=== PATIENT | female | born 1965 | race Caucasian/White ===

== ENCOUNTER → 2017-02-06 09:45 | Outpatient (CLI) | payer MEDICAID | END | disposition home or self-care (01) | LOC: D.RAD 09:45 | DX: K59.01 Slow transit constipation (principal) ==

== ENCOUNTER → 2019-01-18 11:55 | Outpatient (CLI) | payer OTHER, MEDICAID ==
--- NOTE | 2019-01-27 10:38 | ST ---
PATIENT:DARA WADE MEDICAL RECORD: [id number] SEX: F LOCATION:[facility] ORDER #: ADMISSION DATE: 01/18/19 AGE OF PATIENT: 53 REFERRING PHYSICIAN: INTERPRETING PHYSICIAN: SHEY NOVA MD DATE OF SERVICE: 01/18/2019 PROCEDURE: Nuclear stress test. INDICATION: Chest pain compatible with angina, hypertension and hyperlipidemia. She was exercised on standard Lexiscan protocol with 31 mCi of sestamibi injected at peak stress, 11 mCi used previously for rest images. FINDINGS: Gated SPECT reveals preserved ejection fraction at 71% with good wall motion and thickening and brightening throughout all segments. SPECT imaging Cardiolite was used as myocardial fusion agent. There is homogeneous uptake throughout all segments at rest and stress with no evidence of inducible ischemia or previous infarction. OVERALL IMPRESSION: 1. This is a normal nuclear stress test with no evidence of inducible ischemia or previous infarction. 2. Gated SPECT reveals a preserved ejection fraction at 71%. In this patient with ongoing symptomatology, the current scan does not suggest the presence of hemodynamically significant coronary artery disease. Evaluate noncardiac etiology of chest pain. 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
== END | disposition home or self-care (01) ==
LOC: D.HCCARDIO 11:55
PROVIDERS: ATTEND Internal Medicine Interventional Cardiology
DX: I20.9 Angina pectoris, unspecified (principal)

== ENCOUNTER 2019-02-03 11:06 | Outpatient (CLI) | payer MEDICARE, MEDICAID ==
[~2019-02-03] VITALS: Ht 162.6 cm; Wt 78.2 kg
--- NOTE | ~2019-02-03 | HEMODYNAMI ---
PATIENT:DARA WADE MEDICAL RECORD: [id number] : 61 LOCATION:[facility] ADMISSION DATE: 02/03/19 Generatedon:02/03/201914:22 Patient name: DARA WADE Patient #: [id number] SSN: : 1965 Date of study: 02/03/2019 Page: Of Hemodynamic Procedure Report Patient Data Patient Demographics Procedure consent was obtained First Name: DARA Gender: Female Last Name: SHERI : 1965 Middle Initial: MAKI Age: 53 year(s) Patient #: [id number] Race: Unknown Additional ID: [id number] Contact details Address: [address] [place] [address] ROAD State: [place] City: [place] Zip code: [address] Past Medical History Allergies Allergen Reaction Date Comments Reported Other allergy 02/03/2019 CODEINE, MINOCYCLINE, MORPHINE, PCN Admission Admission Data Admission Date: 02/03/2019 Admission Time: 11:06 Weight (lbs.): 171.96 Weight (kg.): 78 Procedure Procedure Types Cath Procedure Diagnostic Procedure [facility] w/Coronaries FFR/IVUS FFR Initial Sedation Charges Moderate Sedation up to 15 minutes PCI Procedure Coronary Stent Coronary Stent Initial Procedure Description Procedure Date Procedure Date: 02/03/2019 Procedure Start Time: 13:51 Procedure End Time: 14:21 Procedure Staff Name Function Jacob Cohen MD Performing Physician Ana Campbell RT Monitor Amrita Mcclure RN Nurse Tahir Spencer RT Scrub Felicitas Hernandez RT Professor Of Family Medicine Procedure Data Cath Procedure Fluoroscopy Diagnostic fluoroscopy Total fluoroscopy Time: 3.5 time: 3.5 min min Diagnostic fluoroscopy Total fluoroscopy dose: 338 dose: 338 mGy mGy Contrast Material Contrast Material Type Amount (ml) Isovue 300 124 Entry Location Entry Primary Successful Side Size Upsize Upsize Entry Closure Succes sful Closure Location (Fr) 1 (Fr) 2 (Fr) Remarks Device Remarks Femoral Right 5 Fr 6 Fr Exoseal artery Short Estimated blood loss: 10 ml Diagnostic catheters Device Type Used For End Catheter Placement MULTIPACK JL 4.0 5Fr Procedure catheter MULTIPACK 3DRC 5Fr Procedure catheter MULTIPACK Pigtail 5 Fr Procedure catheter Procedure Complications No complications Procedure Medications Medication Administration Route Dosage Oxygen etCO2 Nasal cannula 2 l/min Lidocaine 2% added to field 20 Heparin Flush Bag added to field 2 bags (1000units/500ml NS) 0.9% NaCl I.V. 100 ml/hr Versed I.V. 2 mg Fentanyl I.V. 100 mcg Heparin Bolus I.V. 4000 units Integrilin (Bolus I.V. 6.8 ml 2mg/ml) Versed I.V. 2 mg Fentanyl I.V. 50 mcg Plavix P.O. 600 mg Hemodynamics Rest Heart Rate: 72 (bpm) Pressure Samples Time Site Value (mmHg) Purpose Heart Use Rate(bpm) 13:56 LV 156/-4,37 EDP 80 13:56 AO 171/62(121) Pullback 79 13:56 LV 154/3,20 Pullback 79 Gradients Valve Time Site 1 Site 2 Mean SEP/DFP Peak To Heart Use (mmHg) (sec/min) Peak Rate (mmHg) (bpm) Aortic 13:56 LV AO 0 15 0 79 154/3,20 171/62(121) Calculations Valve P-P Mean Valve Index Valve Source Name Gradient Area Flow (cm2) Aortic 0 0 0 0 Snapshots Pre Cath Intra NCS Post Cath Vital Signs Time Heart Resp SPO2 etCO2 NIBP (mmHg) Rhythm Pain Sedation Rate (ipm) (%) (mmHg) Status Level (bpm) 13:40:52 65 19 100 33.5 181/103(147) NSR 0 (11) 10(A) , No pain 13:45:22 76 16 98 34.2 157/97(136) NSR 0 (11) 10(A) , No pain 13:49:49 73 21 98 36.4 149/87(132) NSR 0 (11) 10(A) , No pain 13:54:09 79 21 98 30.5 155/93(130) NSR 0 (11) 10(A) , No pain 13:58:33 83 20 99 36.5 146/90(123) NSR 0 (11) 9(A) , No pain 14:02:55 77 41 99 35.7 151/93(129) NSR 0 (11) 9(A) , No pain 14:07:17 73 12 97 40.2 143/90(118) NSR 0 (11) 9(A) , No pain 14:11:37 75 13 98 9.6 146/87(127) NSR 0 (11) 9(A) , No pain 14:15:58 79 13 99 26 155/102(140) NSR 0 (11) 10(A) , No pain 14:20:22 71 25 99 37.2 163/96(132) NSR 0 (11) 9(A) , No pain Medications Time Medication Route Dose Verified Delivered Reason Notes Effectiveness by by 13:41:28 Oxygen etCO2 2 Jacob Crowe used for Nasal l/min St Moise Mcclure RN procedure cannula 13:44:04 Lidocaine 2% added 20ml Jacob Yaoory for local to vial [facility] anesthetic field MD MULLER 13:44:10 Heparin Flush added 2 Jacob Jacob used for Bag to bags [facility] procedure (1000units/500ml field MD MULLER NS) 13:44:23 0.9% NaCl I.V. 100 Jacob Crowe Per physician ml/hr St Moise Mcclure RN, MD 13:51:40 Versed I.V. 2 mg Jacob Crowe for sedation St Moise Mcclure RN, MD 13:51:48 Fentanyl I.V. 100 Jacob Crowe for sedation mcg St Moise Mcclure RN, MD 13:56:40 Versed I.V. 2 mg Jacob Crowe for sedation St Moise Mcclure RN, MD 13:56:57 Fentanyl I.V. 50 Jacob Crowe for sedation mcg St Moise Mcclure RN, MD 13:58:26 Heparin Bolus I.V. 4000 Jacob Crowe for verif ied units St Moise Mcclure RN anticoagulation with dr MD wilson 14:00:32 Integrilin I.V. 6.8 Jacob Crowe for waste d (Bolus 2mg/ml) ml St Moise Mcclure RN antiplatelet 3.2 ml therapy of vial 14:19:30 Plavix P.O. 600 [address]we for mg St Moise Mcclure RN antiplatelet therapy Procedure Log Time Note 13:23:57 Time tracking: Regular hours (M-F 7:00 - 5:00) 13:24:02 Plan of Care:Hemodynamics will remain stable., Cardiac rhythm will remain stable., Comfort level will be maintained., Respiratory function will remain adequate., Patient/ family verbilizes understanding of procedure., Procedure tolerated without complication., Recovers from procedure without complications.. 13:24:27 Felicitas Mary RT(R) sent for patient. Start room use. 13:25:27 H&P Date Dictated: 01/29/2019 Within 30 days and on chart., H&P Addendum completed by physician on day of procedure. (MUST COMPLETE FOR ALL OUTPATIENTS). 13:25:50 Patient allergic to Other allergyCODEINE, MINOCYCLINE, MORPHINE, PCN 13:26:45 Patient Weight : 171.96 lbs 13:28:37 Signed procedure consent form obtained from patient. 13:34:49 Patient received from Pre/Post Procedure Room to CCL 1 Alert and oriented. Tansferred to table in Supine position. 13:34:51 Warm blankets applied, and marcio hugger turned on for patient comfort. 13:34:52 Correct patient and procedure confirmed by team. 13:34:53 ECG and BP/O2 sat monitors applied to patient. 13:39:29 Vital chart was started 13:39:32 Rhythm: sinus rhythm 13:39:34 Full Disclosure recording started 13:39:37 Pre-procedure instructions explained to patient. 13:39:37 Pre-op teaching completed and patient verbalized understanding. 13:39:42 Family unavailable. 13:39:44 Patient NPO since Midnight. 13:39:46 Is the patient allergic to Iodine/contrast media? No. 13:39:47 Is patient on blood thinner?No 13:39:49 Patient diabetic? No. 13:39:52 Previous problem with sedation/anesthesia? No ? 13:39:53 Snore? No 13:39:56 Sleep apnea? No 13:39:57 Deviated septum? No 13:39:58 Opens mouth fully? Yes 13:39:58 Sticks out tongue? Yes 13:40:00 Airway obstruction? No ? 13:40:02 Dentures? No ? 13:41:28 Oxygen 2 l/min etCO2 Nasal cannula was administered by Amrita Mcclure RN; used for procedure; 13:43:15 Pre procedure: right dorsailis pedis pulse 2+ Normal; easily identifiable; not easily obliterated 13:43:23 Pre procedure: right radial pulse 1+ Palpable, but thready & weak; easily obliterated 13:43:27 Patient pain scale 0/10 ?. 13:43:33 IV patent on arrival in left forearm with 0.9% NaCl at O. 13:43:37 Lab results completed and on chart. 13:43:40 Right groin area was prepped with chlora-prep and draped in sterile fashion 13:43:42 Alarms reviewed by R. N. 13:43:43 Sharps counted by scrub and verified by R.N. 13:43:49 Use device set Femoral Dx 13:43:50 ACIST Syringe (84889) opened to sterile field. 13:43:50 Bag Decanter (2002S) opened to sterile field. 13:43:51 Medline Cath Pack ([id number]) opened to sterile field. 13:43:51 ACIST Hand Control (21405) opened to sterile field. 13:43:52 ACIST Manifold (08128) opened to sterile field. 13:43:52 DIAGNOSTIC Multipack 5Fr catheter set (ZB3182) opened to sterile field. 13:43:53 Tegaderm 4 x 4 (1626W) opened to sterile field. 13:43:54 SHEATH 5FR Culver ([id number]) opened to sterile field. 13:44:04 Lidocaine 2% 20ml vial added to field was administered by Jacob Cohen MD; for local anesthetic; 13:44:09 Baseline sample Acquired. 13:44:10 Heparin Flush Bag (1000units/500ml NS) 2 bags added to field was administered by Jacob Cohen MD; used for procedure; 13:44:23 0.9% NaCl 100 ml/hr I.V. was administered by Amrita Mcclure RN; Per physician; 13:45:45 DIAGNOSTIC WIRE .035 260cm J wire (738698) opened to sterile field. 13:50:45 --------ALL STOP TIME OUT------ 13:50:45 Final Timeout: patient, procedure, and site verified with staff and physician. All members of the team are in agreement. 13:50:46 Right groin site verified by team. 13:50:48 Maximum allowable Isovue 300 dose 300ml. Physician notified. (300ml for normal creatinines. For patients with creatinine of 1.7 or higher multiply weight(kg) x 5 divided by creatinine.) 13:50:52 Fire Safety Assessment: A--An alcohol-based skin anteseptic being used preoperatively., C--Open oxygen or nitrous oxide is being used., D--An ESU, laser, or fiber-optic light is being used. 13:50:54 Physical assessment completed. ASA score P 2 - A patient with mild systemic disease as per Jacob Cohen MD. 13:50:58 Sedation plan: IV Moderate Sedation Medication:Versed, Fentanyl 13:51:02 Procedure started. 13:51:05 Local anesthetic to right femoral artery with Lidocaine 2% by Jacob Cohen MD.INITIAL ACCESS ONLY 13:51:36 A 5 Fr sheath was inserted into the Right Femoral artery 13:51:40 Versed 2 mg I.V. was administered by Amrita Mcclure RN; for sedation; 13:51:48 Fentanyl 100 mcg I.V. was administered by Amrita Mcclure RN; for sedation; 13:51:56 A MULTIPACK JL 4.0 5Fr catheter was advanced over the wire and used for Procedure. 13:53:24 LCA angiography performed. 13:53:38 Catheter removed. 13:53:54 A MULTIPACK 3DRC 5Fr catheter was advanced over the wire and used for Procedure. 13:54:38 RCA angiography performed. 13:54:39 Catheter removed. 13:55:20 A MULTIPACK Pigtail 5 Fr catheter was advanced over the wire and used for Procedure. 13:56:00 LV gram done using PATTERSON 13:56:02 Injector settings: Ml/sec: 10, Volume: 20, 13:56:16 LV hemodynamics recorded. 13:56:40 Versed 2 mg I.V. was administered by Amrita cMclure RN; for sedation; 13:56:46 EF : 55 % 13:56:48 Catheter removed. 13:56:57 Fentanyl 50 mcg I.V. was administered by Amrita Mcclure RN; for sedation; 13:56:57 SHEATH 6FR Culver (GNL997) opened to sterile field. 13:56:57 [place] Verrata Plus pressure wire (07039F) opened to sterile field. 13:56:58 GUIDE 6FR JL 4.0 catheter ([id number]) opened to sterile field. 13:57:17 Sheath upsized to a 6 Fr Short. 13:58:19 6 Fr JL 4 guide catheter was inserted over the wire 13:58:26 Heparin Bolus 4000 units I.V. was administered by Amrita Mcclure RN; for anticoagulation; verified with dr wilson 13:58:43 INFLATOR Merit Krysta (GA6817) opened to sterile field. 14:00:32 Integrilin (Bolus 2mg/ml) 6.8 ml I.V. was administered by Amrita Mcclure RN; for antiplatelet therapy; wasted 3.2 ml of vial 14:02:08 PRESSURE WIRE REMOVED.... DAMAGED 14:02:18 [place] Verrata Plus pressure wire (35749X) opened to sterile field. 14:03:05 FFR/IFR wire advanced. 14:12:25 Place stent Inflation Number: 1 A INTEGRITY RX 3.0 x 15 stent ([id number]) was prepped and advanced across the Mid LAD. The stent was deployed at 14 ANNIE for 0:25 (min:sec). 14:12:59 Stent catheter was removed intact over wire. 14:14:10 Wire removed. 14:14:11 Guide catheter removed. 14:14:16 EXOSEAL 6Fr (EX600) opened to sterile field. 14:14:45 Sheath removed intact; hemostasis achieved with Exoseal to the Right Femoral artery. 14:14:47 Procedure ended.(Physican Out) 14:16:14 Fluoroscopy time 03.50 minutes. 14:16:19 Fluoroscopy dose: 338 mGy 14:16:19 Flurop Dose total: 338 14:16:22 Contrast amount:Isovue 300 124ml. 14:16:24 Sharps counted by scrub and verified by R.N. 14:16:27 Post-op/insertion site Right Femoral artery dressed using a 4 x 4 and Tegaderm. 14:16:38 Post-procedure physical assessment completed. ASA score P 2 - A patient with mild systemic disease as per Jacob Cohen MD. 14:16:41 Post procedure rhythm: sinus rhythm 14:16:42 Estimated blood loss: 10 ml 14:16:43 Post procedure instruction explained to patient.Patient verbalizes understanding. 14:16:44 Patient needs reinforcement of post procedure teaching. 14:17:12 Procedure type changed to Cath procedure, Diagnostic procedure, LHC, LHC w/Coronaries, FFR/IVUS, FFR Initial, Sedation Charges, Moderate Sedation up to 15 minutes, PCI procedure, Coronary Stent, Coronary Stent Initial 14:19:06 Procedure and supply charges have been captured, reviewed, submitted and are correct. 14:19:08 Procedure Complication : No complications 14:19:30 Plavix 600 mg P.O. was administered by Amrita Mcclure RN; for antiplatelet therapy; 14:21:29 Vital chart was stopped 14:21:30 See physician's report for complete and final results. 14:21:32 Report given to Pre/Post Procedure Room. 14:21:35 Patient transfered to Pre/Post Procedure Room with Bed. 14:21:37 Procedure ended. 14:21:37 Full Disclosure recording stopped 14:21:40 End room use (Document Last) Intervention Summary Intervention Notes Time ActionType Lesion and Equipment Action# Pressure Duration Attributes Used 14:12:25 Place stent Mid LAD INTEGRITY RX 1 14 00:25 3.0 x 15 stent ([id number]) Device Usage Item Name Manufacture Quantity Catalog Hospital Part Current Mini smallpox hospital Lot# / Number Charge Number Stock Stock Serial# Code ACIST Acist 1 64827 390890 914765 034742 20 Syringe Medical (27186) Systems Inc Bag Decanter Microtek 1 2001S 000258 82552 423899 5 (2001S) Medical Inc. Medline Cath Medline 1 [id number] 290742 02671 940090 5 Pack ([id number]) ACIST Hand Acist 1 33403 838081 383991 594632 5 Control Medical (09222) Systems Inc ACIST Acist 1 00647 768114 849650 883162 5 Manifold Medical (18691) Systems Inc DIAGNOSTIC Cardinal 1 [id number] 091651 21329 470351 30 Multipack Health 5Fr catheter set (QR4414) Tegaderm 4 x 3M 1 1626W 457861 391931 162841 5 4 (1626W) SHEATH 5FR Terumo 1 PHH759 396417 285695 180901 5 Culver (ZAV452) DIAGNOSTIC St Vince 1 593185 894775 194930 809712 30 WIRE .035 260cm J wire (836872) MULTIPACK JL Cardinal 1 313627 5 4.0 5Fr Health catheter MULTIPACK Cardinal 1 137571 5 3DRC 5Fr Health catheter MULTIPACK Cardinal 1 248491 5 Pigtail 5 Fr Health catheter SHEATH 6FR Terumo 1 RVK859 471184 407429 295086 40 Culver (SCK369) Washington Washington 2 75046G 817221 240201663 377489 5 Verrata Plus pressure wire (15846L) GUIDE 6FR JL Medtronic 1 [id number] 753627 58130 376508 1 4.0 catheter (UU8QX04) INFLATOR Merit 1 EH3943 732424 876779 520052 15 [facility] Medical BasixCompak (TY6486) INTEGRITY RX Medtronic 1 [id number] 087972 285596 931083 5 [id number] 3.0 x 15 stent ([id number]) EXOSEAL 6Fr Cardinal 1 EX600 747578 284607 203993 10 (EX600) Health Signature Audit [place] Stage Time Signature Unsigned Intra-Procedure 02/03/2019 Ana Campbell 2:22:01 PM RT(R) Signatures Monitor : Ana Campbell Signature : RT Date : Time : [id number] [place] [address]
--- NOTE | ~2019-02-03 | OP ---
PATIENT NAME: DARA WADE MEDICAL RECORD: [id number] :61 LOCATION:[facility] ADMISSION DATE: SURGEON: DARI DREW MD DATE OF OPERATION: 02/03/2019 PROCEDURE: Cath, FFR, stenting to LAD, right femoral artery approach. CATHETERS: A 5-Albanian sheath, 5/4 left and right Marielos, 5/4 pig. The procedure was well tolerated. We proceeded to do FFR and subsequent stenting. FINDINGS: Left ventriculography in 30-degree PATTERSON view; normal wall motion and normal systolic function. CORONARY ANATOMY: LEFT MAIN: Left main is free of disease. LAD: Has 80% stenosis in its proximal portion. This confirmed to be flow restrictive fractional flow wire with 0.78. CIRCUMFLEX: Small vessel, free of disease. RIGHT CORONARY ARTERY: Has again an 80% stenosis in its midportion. ASSESSMENT: Confirmed significant lesion via fractional flow reserve. PLAN: Interventional LAD, right at a later date. Following FFR, a 3.0 Integrity nondrug eluting stent was placed across the 80% stenosed LAD and inflated up to 14 atmospheres for 45 seconds. Final angiography shows excellent resolution, no significant residual. GURPREET flow was 3 throughout the procedure. Sheath was closed with ExoSeal device. Plavix was loaded in the lab. TRANSINT:[id number] Voice Confirmation ID: [id number] DOCUMENT ID: [id number] DARI DREW MD CC: [id number] DICTATION DATE: 02/03/19 1420 DIRECTOR OF GLOBAL TALENT: 02/03/19 1552 [facility] [address] [place] [address]
[2019-02-03] MEDS ORDERED: LISINOPRIL20 MG PO (11:11)
[2019-02-03] MEDS ORDERED: ATIVAN1 MG PO (11:12)
[2019-02-03] MEDS ORDERED: TENORMIN25 MG PO (11:12)
[2019-02-03] MEDS ORDERED: BUPROPION HCL200 M1 PO (11:12)
[2019-02-03] MEDS ORDERED: CRESTOR20 MG PO (11:12)
[2019-02-03 11:23] VITALS: BP 139/80; Ht 162.6 cm; Wt 78.2 kg
[2019-02-03 11:49] LABS: BASOPHILS 0.6 % (0-2); EOSINOPHILS 1.5 % (0-7); HEMATOCRIT 36.5 % (36.0-48.0); HEMOGLOBIN 12.2 g/dL (12-16); IMMATURE GRANULOCYTES 0.4 % (0-5); MCH 28.2 pg (26.0-34.0); MCHC 33.4 g/dL (31.0-37.0); MCV 84.5 fL (80.0-100.0); MEAN PLATELET VOLUME 9.2 fL (7.4-10.4); MONOCYTES 10.4 % (2-11); NEUTROPHILS 59.1 % (40-80); PLATELET COUNT 277 10x3/uL (130-400); RBC 4.32 10x6/uL (4.00-5.40); RDW 13.3 % (11.5-14.5); WBC 5.3 10x3/uL (4.8-10.8)
[2019-02-03 11:55] LABS: ANION GAP 13.9 mmol/L (8-16); CALCIUM 8.8 mg/dL (8.5-10.1); CREATININE - SERUM 1.1 mg/dL (0.6-1.3); POTASSIUM - SERUM 3.9 mmol/L (3.5-5.1)
[2019-02-03] MEDS ORDERED: PLAVIX75 MG PO (14:27)
--- NOTE | 2019-02-03 14:33 | NUR ---
PT ARRIVED BY STRETCHER. PLACED ON MONITORS. ASSESSMENT COMPLETED. CALL LIGHT WITHIN REACH. NO FAMILY AT BEDSIDE AT THIS TIME.
--- NOTE | 2019-02-03 14:45 | NUR ---
RIGHT GROIN DRESSING C/D/I. NO S/S OF HEMATOMA NOTED. PT RESTING COMFORTABLY AT THIS TIME. VSS.
--- NOTE | 2019-02-03 15:15 | NUR ---
RIGHT GROIN DRESSING C/D/I. NO S/S OF HEMATOMA NOTED. RIGHT PEDAL PULSE PRESENT. VSS. PT DENIES ANY NAUSEA OR PAIN AT THIS TIME. WILL CONTINUE TO MONITOR.
--- NOTE | 2019-02-03 15:46 | NUR ---
PT RESTING COMFORTABLY. RIGHT GROIN DRESSING C/D/I. NO S/S OF HEMATOMA NOTED. VSS.
--- NOTE | 2019-02-03 16:19 | NUR ---
PT ON BEDPAN. VOIDED APPROX 250CC OF CLEAR YELLOW URINE WITHOUT DIFFICULTY. CLARITA-CARE GIVEN. RIGHT GROIN DRESSING C/D/I. NO S/S OF HEMATOMA NOTED. CALL LIGHT WITHIN REACH. PT RESTING COMFORTABLY.
--- NOTE | 2019-02-03 16:47 | NUR ---
PT RESTING COMFORTABLY. VSS. CALL LIGHT WITHIN REACH. RIGHT GROIN DRESSING C/D/I. NO S/S OF HEMATOMA NOTED.
--- NOTE | 2019-02-03 17:15 | NUR ---
PT'S HEAD OF BED INC TO 30 DEGREES. TOLERATED WELL. PT DOES NOT WANT TO EAT AT THIS TIME. GIVEN WATER TO DRINK.
--- NOTE | 2019-02-03 17:31 | NUR ---
CHECKED ON PT. SHE ASKED FOR ORANGE JUICE. WENT TO GET JUICE AND CAME BACK. SHE C/O BEING DIZZY. HR TRENDING DOWN AND BRADYCARDIC AT 52. BP RECHECKED AND WAS 72/47. PT PLACED IN [place]. C/O FEELING HOT. IV FLUID STILL INFUSING AT THIS TIME. RIGHT GROIN CHECKED AND SOFT TO TOUCH. NO S/S OF HEMATOMA OR BLEEDING. PT DENIES PAIN AT THIS TIME.
--- NOTE | 2019-02-03 17:33 | NUR ---
STILL AT BEDSIDE WITH PT. SHE REPORTS STILL FEELING DIZZY BUT FEELING BETTER. PT'S COLOR IS PALE. BP 81/52 AND HR CLIMBING BACK UP. CURRENTLY SB AT RATE OF 56.
--- NOTE | 2019-02-03 17:34 | NUR ---
BP 98/62 HR 61 PT CONTINUING TO FEEL BETTER. STILL IN [place]. CLOSELY MONITORING
--- NOTE | 2019-02-03 17:37 | NUR ---
BP 117/61 HR 71 PT REPORTS FEELING "MUCH BETTER". PLACED BACK IN SUPINE POSITION. WILL CONTINUE TO MONITOR. CALL LIGHT WITHIN REACH.
--- NOTE | 2019-02-03 18:00 | NUR ---
PT'S BP 135/84. HR 65. PT'S HEAD OF BED INC TO 15 DEGREES. RIGHT GROIN DRESSING C/D/I. NO S/S OF HEMATOMA NOTED. WILL CONTINUE TO MONITOR.
--- NOTE | 2019-02-03 18:13 | NUR ---
PT STATES SHE FEELS MUCH BETTER. BP 140/80. HR 76. PT GIVEN SANDWICH TRAY. FAMILY AT BEDSIDE. UPDATED ON PT'S STATUS. HOB INC TO 30 DEGREES. SHE TOLERATED WELL. RIGHT GROIN SOFT TO TOUCH. NO S/S OF HEMATOMA NOTED.
--- NOTE | 2019-02-03 18:26 | NUR ---
PT SAT UP TO SIDE OF BED. BP 159/100 HR 80. PT STOOD UP, BP 142/99 AND HR 80. PT REPORTS SHE FEELS FINE. AMBULATED TO RESTROOM. VOIDED WITHOUT DIFFICULTY. STEADY GAIT NOTED. PT DENIES DIZZINESS/NAUSEA.
--- NOTE | 2019-02-03 18:30 | NUR ---
LEFT ARM PIV D/C'D WITH CATH TIP INTACT. PT TOLERATED WELL. RIGHT GROIN DRESSING C/D/I. NO S/S OF HEMATOMA NOTED. DISCUSSED DISCHARGE INSTRUCTIONS WITH PT AND PT'S FAMILY. THEY VOICED UNDERSTANDING.
--- NOTE | 2019-02-03 18:45 | NUR ---
PT TAKEN OUT TO VEHICLE BY WHEELCHAIR. NO S/S OF DISTRESS NOTED. ALL BELONGINGS AND PAPERWORK IN HAND.
== END 2019-02-03 18:45 | disposition home or self-care (01) ==
LOC: D.CATH 11:06
PROVIDERS: ATTEND Internal Medicine Interventional Cardiology
DX: I25.119 Atherosclerotic heart disease of native coronary artery with unspecified angina pectoris (principal); Z01.812 Encounter for preprocedural laboratory examination

== ENCOUNTER 2019-02-18 11:03 | Outpatient (CLI) | payer MEDICARE, MEDICAID ==
[~2019-02-18] VITALS: Ht 162.6 cm; Wt 75.0 kg
--- NOTE | ~2019-02-18 | HEMODYNAMI ---
PATIENT:DARA WADE MEDICAL RECORD: [id number] : 61 LOCATION:[facility] ADMISSION DATE: 02/18/19 Generatedon:02/18/201913:36 Patient name: DARA WADE Patient #: [id number] SSN: : 1965 Date of study: 02/18/2019 Page: Of Hemodynamic Procedure Report Patient Data Patient Demographics Procedure consent was obtained First Name: DARA Gender: Female Last Name: SHERI : 1965 Middle Initial: MAKI Age: 53 year(s) Patient #: [id number] Race: Additional ID: [id number] Contact details Address: [address] [place] [address] State: [place] City: [place] Zip code: [address] Past Medical History Allergies Allergen Reaction Date Comments Reported Other allergy 02/03/2019 CODEINE, MINOCYCLINE, MORPHINE, PCN Admission Admission Data Admission Date: 02/18/2019 Admission Time: 11:03 Lab Results Lab Result Date: 02/18/2019 Lab Result Time: 0:00 Biochemistry Name Units Result Min Max BUN mg/dl 29 --(----)-* 7 18 Creatinine mg/dl 1 --(--*-)-- 0.6 1.3 Procedure Procedure Types Cath Procedure PCI Procedure Coronary Stent Coronary Stent Initial Procedure Description Procedure Date Procedure Date: 02/18/2019 Procedure Start Time: 13:20 Procedure End Time: 13:34 Procedure Staff Name Function Jacob Cohen MD Performing Physician Tahir Spencer RT Monitor Amrita Mcclure RN Nurse Rom Hoover RT Scrub Procedure Data Cath Procedure Fluoroscopy Diagnostic fluoroscopy Total fluoroscopy Time: 2.4 time: 2.4 min min Diagnostic fluoroscopy Total fluoroscopy dose: 89 dose: 89 mGy mGy Contrast Material Contrast Material Type Amount (ml) Isovue 300 36 Entry Location Entry Primary Successful Side Size Upsize Upsize Entry Closure Succes sful Closure Location (Fr) 1 (Fr) 2 (Fr) Remarks Device Remarks Femoral Right 6 Fr Exoseal artery Short Estimated blood loss: 10 ml Procedure Complications No complications Procedure Medications Medication Administration Route Dosage Oxygen etCO2 Nasal cannula 2 l/min Lidocaine 2% added to field 20 Heparin Flush Bag added to field 2 bags (1000units/500ml NS) 0.9% NaCl I.V. 100 ml/hr Versed I.V. 2 mg Fentanyl I.V. 100 mcg Heparin Bolus I.V. 4000 units Versed I.V. 1 mg Fentanyl I.V. 50 mcg Hemodynamics Rest Heart Rate: 60 (bpm) Snapshots Pre Cath Intra NCS Post Cath Vital Signs Time Heart Resp SPO2 etCO2 NIBP (mmHg) Rhythm Pain Sedation Rate (ipm) (%) (mmHg) Status Level (bpm) 13:07:44 62 20 97 0 138/84(123) NSR 0 (11) 10(A) , No pain 13:12:01 59 18 98 0 155/89(140) NSR 0 (11) 10(A) , No pain 13:16:14 61 17 100 34.5 146/89(128) NSR 0 (11) 10(A) , No pain 13:20:27 59 15 94 42.1 133/87(114) NSR 0 (11) 10(A) , No pain 13:24:38 60 17 96 0 124/78(98) NSR 0 (11) 9(A) , No pain 13:28:51 62 16 97 46.6 128/82(95) NSR 0 (11) 9(A) , No pain 13:33:04 63 15 99 41.4 135/82(99) NSR 0 (11) 10(A) , No pain Medications Time Medication Route Dose Verified Delivered Reason Notes Effectiveness by by 13:00:14 0.9% NaCl I.V. 100 Jacob Amrita Per physician ml/hr [facility] Moise Mcclure RN, MD 13:11:53 Oxygen etCO2 2 Jacob Crowe used for Nasal l/min [facility] Moise Mcclure RN procedure cannula 13:18:39 Lidocaine 2% added 20ml Jacob James for local to vial [facility] anesthetic field MD MULLER 13:18:47 Heparin Flush added 2 Jacob James used for Bag to bags [facility] procedure (1000units/500ml field MD MULLER NS) 13:19:11 Versed I.V. 2 mg Jacob Crowe for sedation St Moise Mcclure RN, MD 13:19:17 Fentanyl I.V. 100 Jacob Crowe for sedation mcg St Moise Mcclure RN, MD 13:23:11 Heparin Bolus I.V. 4000 Jacob Crowe for verif ied units St Moise Mcclure RN anticoagulation with dr MD wilson 13:28:32 Versed I.V. 1 mg Jacob Crowe for sedation St Moise Mcclure RN, MD 13:28:37 Fentanyl I.V. 50 Jacob Crowe for sedation alaina Connell RN, MD Procedure Log Time Note 12:53:23 PCI Cath Status : Elective 12:54:16 Amrita Mcclure RN sent for patient. Start room use. 12:54:19 Time tracking: Regular hours (M-F 7:00 - 5:00) 12:54:26 Plan of Care:Hemodynamics will remain stable., Cardiac rhythm will remain stable., Comfort level will be maintained., Respiratory function will remain adequate., Patient/ family verbilizes understanding of procedure., Procedure tolerated without complication., Recovers from procedure without complications.. 13:00:14 0.9% NaCl 100 ml/hr I.V. was administered by Amrita Mcclure RN; Per physician; 13:06:19 Patient received from Pre/Post Procedure Room to CCL 1 Alert and oriented. Tansferred to table in Supine position. 13:06:24 Warm blankets applied, and marcio hugger turned on for patient comfort. 13:06:26 Correct patient and procedure confirmed by team. 13:06:28 Signed procedure consent form obtained from patient. 13:06:33 ECG and BP/O2 sat monitors applied to patient. 13:06:37 Vital chart was started 13:06:38 Baseline sample Acquired. 13:06:42 Rhythm: sinus rhythm 13:06:44 Full Disclosure recording started 13:07:24 H&P Date Dictated: 01/29/2019 Within 30 days and on chart., H&P Addendum completed by physician on day of procedure. (MUST COMPLETE FOR ALL OUTPATIENTS). 13:07:27 Pre-procedure instructions explained to patient. 13:07:28 Pre-op teaching completed and patient verbalized understanding. 13:07:38 Family in waiting room. 13:07:41 Patient NPO since Breakfast. 13:07:54 Is the patient allergic to Iodine/contrast media? No. 13:07:57 Is patient on blood thinner?Yes 13:08:00 ACC The patient was administered the following blood thiners within the last 24 hours: ACCPlavix 13:08:04 Patient diabetic? No. 13:11:53 Oxygen 2 l/min etCO2 Nasal cannula was administered by Amrita Mcclure RN; used for procedure; 13:15:13 Previous problem with sedation/anesthesia? No ? 13:15:14 Snore? Yes 13:15:15 Sleep apnea? No 13:15:16 Deviated septum? No 13:15:17 Opens mouth fully? Yes 13:15:17 Sticks out tongue? Yes 13:15:19 Airway obstruction? No ? 13:15:20 Dentures? No ? 13:16:14 Pre procedure: right dorsailis pedis pulse 2+ Normal; easily identifiable; not easily obliterated 13:16:16 Patient pain scale 0/10 ?. 13:16:21 IV patent on arrival in left hand with 0.9% NaCl at [facility]. 13:17:17 Lab Result : BUN 29 mg/dl 13:17:17 Lab Result : Creatinine 1 mg/dl 13:17:19 Lab results completed and on chart. 13:17:21 Right groin area was prepped with chlora-prep and draped in sterile fashion 13:17:22 Alarms reviewed by R. N. 13:17:23 Sharps counted by scrub and verified by R.N. 13:17:27 ACIST Syringe (30057) opened to sterile field. 13:17:27 Bag Decanter (2002) opened to sterile field. 13:17:28 Medline Cath Pack ([id number]) opened to sterile field. 13:17:29 DIAGNOSTIC WIRE .035 260cm J wire (528079) opened to sterile field. 13:17:31 Tegaderm 4 x 4 (1626W) opened to sterile field. 13:17:32 ACIST Hand Control (74828) opened to sterile field. 13:17:32 ACIST Manifold (94230) opened to sterile field. 13:17:53 GUIDE 6FR HS I catheter (LA6HSI) opened to sterile field. 13:17:54 WHISPER 300cm guide wire ([id number]) opened to sterile field. 13:17:54 INFLATOR Merit BasixCompak (LX0042) opened to sterile field. 13:17:55 SHEATH 6FR [place] (GHQ804) opened to sterile field. 13:18:00 Physician arrived 13:18:01 --------ALL STOP TIME OUT------ 13:18:01 Final Timeout: patient, procedure, and site verified with staff and physician. All members of the team are in agreement. 13:18:02 Right groin site verified by team. 13:18:05 Maximum allowable Isovue 300 dose 300ml. Physician notified. (300ml for normal creatinines. For patients with creatinine of 1.7 or higher multiply weight(kg) x 5 divided by creatinine.) 13:18:07 Fire Safety Assessment: A--An alcohol-based skin anteseptic being used preoperatively., C--Open oxygen or nitrous oxide is being used., D--An ESU, laser, or fiber-optic light is being used. 13:18:10 Physical assessment completed. ASA score P 2 - A patient with mild systemic disease as per Jacob Cohen MD. 13:18:17 Sedation plan: IV Moderate Sedation Medication:Versed, Fentanyl 13:18:39 Lidocaine 2% 20ml vial added to field was administered by Jacob Cohen MD; for local anesthetic; 13:18:47 Heparin Flush Bag (1000units/500ml NS) 2 bags added to field was administered by Jacob Cohen MD; used for procedure; 13:19:11 Versed 2 mg I.V. was administered by Amrita Mcclure RN; for sedation; :19:17 Fentanyl 100 mcg I.V. was administered by Amrita Mcclure RN; for sedation; 13:20:28 Procedure started. 13:20:33 Local anesthetic to right femoral artery with Lidocaine 2% by Jacob Cohen MD.INITIAL ACCESS ONLY 13:20:42 A 6 Fr Short sheath was inserted into the Right Femoral artery 13:22:02 Zero performed for pressure channel P1 13:23:11 Heparin Bolus 4000 units I.V. was administered by Amrita Mcclure RN; for anticoagulation; verified with dr wilson 13:25:07 6 Fr HS 1 guide catheter was inserted over the wire 13:25:28 WHISPER wire advanced. 13:25:30 Wire advanced across lesion. 13:28:19 Place stent Inflation Number: 1 A SHINE RX 3.0 x 18 stent ([id number]) was prepped and advanced across the Prox RCA. The stent was deployed at 14 ANNIE for 0:30 (min:sec). 13:28:22 Stent catheter was removed intact over wire. 13:28:32 Versed 1 mg I.V. was administered by Amrita Mcclure RN; for sedation; 13:28:37 Fentanyl 50 mcg I.V. was administered by Amrita Mcclure RN; for sedation; 13:31:06 Place stent Inflation Number: 2 A SHINE RX 3.0 x 15 stent ([id number]) was prepped and advanced across the Prox RCA. The stent was deployed at 14 ANNIE for 0:30 (min:sec). 13:32:05 Stent catheter was removed intact over wire. 13:32:06 Wire removed. 13:32:07 Guide catheter removed. 13:32:12 EXOSEAL 6Fr (EX600) opened to sterile field. 13:32:18 Sheath removed intact; hemostasis achieved with Exoseal to the Right Femoral artery. 13:32:19 Procedure ended.(Physican Out) 13:33:04 Fluoroscopy time 02.40 minutes. 13:33:07 Flurop Dose total: 89 13:33:07 Fluoroscopy dose: 89 mGy 13:33:12 Contrast amount:Isovue 300 36ml. 13:33:13 Sharps counted by scrub and verified by R.N. 13:33:13 Insertion/operative site no bleeding no hematoma. 13:33:15 Post-op/insertion site Right Femoral artery dressed using a 4 x 4 and Tegaderm. 13:33:19 Post right femoral artery:stable, soft, clean and dry 13:33:24 Post Procedure Pulses reassessed and unchanged 13:33:26 Post-procedure physical assessment completed. ASA score P 2 - A patient with mild systemic disease as per Jacob Cohen MD. 13:33:28 Post procedure rhythm: unchanged. 13:33:30 Estimated blood loss: 10 ml 13:33:31 Post procedure instruction explained to patient.Patient verbalizes understanding. 13:33:32 Patient needs reinforcement of post procedure teaching. 13:34:01 Procedure and supply charges have been captured, reviewed, submitted and are correct. 13:34:03 Procedure Complication : No complications 13:34:05 Vital chart was stopped 13:34:05 See physician's report for complete and final results. 13:34:06 Report given to Pre/Post Procedure Room. 13:34:08 Patient transfered to Pre/Post Procedure Room with Stretcher. 13:34:18 Procedure ended. 13:34:18 Full Disclosure recording stopped 13:34:22 End room use (Document Last) Intervention Summary Intervention Notes Time ActionType Lesion and Equipment Used Action# Pressure Duration Attributes 13:28:19 Place stent Prox RCA SHINE RX 3.0 x 1 14 00:30 18 stent ([id number]) 13:31:06 Place stent Prox RCA SHINE RX 3.0 x 2 14 00:30 15 stent ([id number]) Device Usage Item Name Manufacture Quantity Catalog [facility] Lot# / Number Charge Number Stock Stock Serial# Code ACIST Syringe Acist 1 75338 904521 001378 198009 20 (94204) Medical Systems [employer] Bag Decanter Microtek 1 2001S 942492 18855 340167 5 (2001S) Medical Inc. Medline Cath Medline 1 [id number] 903975 35921 499161 5 Pack ([id number]) DIAGNOSTIC St Vince 1 693828 840673 842726 985548 30 WIRE .035 260cm J wire (062215) Tegaderm 4 x 4 3M 1 1626W 108898 036863 763967 5 (1626W) ACIST Hand Acist 1 33867 975422 611800 780118 5 Control Medical (46850) Systems Inc ACIST Manifold Acist 1 85992 800875 944818 789121 5 (53450) Medical Systems Inc GUIDE 6FR HS I Medtronic 1 LA6HSI 798916 58372 153814 1 catheter (LA6HSI) WHISPER 300cm Beck 1 [id number] 001438 413716 413708 5 guide wire Vascular (0633346MU) INFLATOR Merit Merit 1 HI5576 286677 212428 635729 15 Party Over Here (BJ1826) SHEATH 6FR Terumo 1 PHU922 481783 559874 037797 40 [place] (NQH150) SHINE RX 3.0 x Medtronic 1 [id number] 622316 1940665 278964 5 [id number] 18 stent ([id number]) SHINE RX 3.0 x Medtronic 1 [id number] 848050 7625379 897014 5 [id number] 15 stent ([id number]) EXOSEAL 6Fr Cardinal 1 EX600 817917 290758 359607 10 (EX600) Health Signature Audit [place] Stage Time Signature Unsigned Intra-Procedure 02/18/2019 Tahir Spencer 1:36:33 PM RT(R) Signatures Monitor : Tahir Spencer RT Signature : Date : Time : [address] [address]
[~2019-02-18 11:03] MED LIST: ATIVAN1 MG PO; BUPROPION HCL200 M1 PO; CRESTOR20 MG PO; LISINOPRIL20 MG PO; PLAVIX75 MG PO; TENORMIN25 MG PO
[2019-02-18] MEDS ORDERED: BAYER CHEWABLE81 MG PO (11:23)
[2019-02-18 11:33] VITALS: BP 137/83; Ht 162.6 cm; Wt 75.0 kg
[2019-02-18 11:43] LABS: BASOPHILS 0.7 % (0-2); EOSINOPHILS 2.6 % (0-7); HEMATOCRIT 36.8 % (36.0-48.0); HEMOGLOBIN 12.4 g/dL (12-16); IMMATURE GRANULOCYTES 0.2 % (0-5); LYMPHOCYTES 37.4 % (15-50); MCH 28.2 pg (26.0-34.0); MCHC 33.7 g/dL (31.0-37.0); MCV 83.8 fL (80.0-100.0); MEAN PLATELET VOLUME 9.6 fL (7.4-10.4); MONOCYTES 12.1 % (2-11); PLATELET COUNT 312 10x3/uL (130-400); RBC 4.39 10x6/uL (4.00-5.40); RDW 13.7 % (11.5-14.5); WBC 5.7 10x3/uL (4.8-10.8)
[2019-02-18 11:52] LABS: ANION GAP 14.6 mmol/L (8-16); CALCIUM 8.7 mg/dL (8.5-10.1); CARBON DIOXIDE 25.2 mmol/L (21.0-32.0); POTASSIUM - SERUM 3.8 mmol/L (3.5-5.1)
--- NOTE | 2019-02-18 13:58 | NUR ---
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 PT IS DROWSY, DENIES ANY C/O PAIN OR NAUSEA. DRESSING CDI TO RIGHT GROIN, AREA IS SOFT AND NONTENDER. PEDAL PULSES PALPABLE. HOB IS FLAT. VSS, CALL LIGHT IN REACH.
--- NOTE | 2019-02-18 14:14 | NUR ---
PT KAILYN PO FLUIDS WITH NO C/O NAUSEA. DRESSING CDI TO RIGHT GROIN, AREA IS SOFT AND NONTENDER. PEDAL PULSES PALPABLE. VSS. CALL LIGHT IN REACH. HOB IS FLAT.
--- NOTE | 2019-02-18 14:39 | NUR ---
PT KAILYN SPRITE WITH NO NAUSEA. DRESSING TO RIGHT GROIN IS CDI, PEDAL PULSES PALPABLE. HOB IS FLAT. PT SLEEPING INTERMITTENTLY, AWAKENS EASILY. CALL LIGHT IN REACH.
--- NOTE | 2019-02-18 15:04 | NUR ---
DRESSING TO RIGHT GROIN IS CDI, AREA IS SOFT AND NONTENDER. PEDAL PULSES PALPABLE. SINUS JIMMIE AT 57, DENIES ANY C/O CHEST PAIN. HOB IS FLAT, CALL LIGHT IN REACH.
--- NOTE | 2019-02-18 15:23 | NUR ---
PT DENIES ANY C/O. DRESSING CDI TO RIGHT GROIN, AREA IS SOFT AND NONTENDER. PEDAL PULSES PALPABLE. VSS. RESP WITH EASE.
--- NOTE | 2019-02-18 16:05 | NUR ---
PT ALERT, DENIES AY C/O. DRESSING IS CDI TO RIGHT GROIN, AREA IS SOFT AND NONTENDER. PEDAL PULSES PALPABLE. VSS, RESP WITH EASE, PT DENIES NEEDS AT THIS TIME.
--- NOTE | 2019-02-18 16:35 | NUR ---
HOB ELEVATED AND SANDWICH SERVED. VSS,DRESSING CDI, PEDAL PULSES PALPABLE, PT DENIES ANY C/O.
--- NOTE | 2019-02-18 17:10 | NUR ---
DRESSING CDI, PT HAS TOLERATED SANDWICH AND DENIES ANY C/O. PEDAL PULSES PALPABLE. VSS. CALL LIGHT IN REACH.
--- NOTE | 2019-02-18 18:05 | NUR ---
1730 DC INSTRUCTIONS REVIEWED WITH PT,SISTER AND MOTHER WHO VERBALIZE UNDERSTANDING. IV DC'D WITH CATH INTACT. PT DRESSING FOR DC WITH ASSIST. 1740 DRESSING TO RIGHT GROIN REMAINS CDI. PT HAS VOIDED QS. DENIES ANY C/O. PT ESCORTED TO PRIVATE AUTO VIA WC BY NURSE WITH MOTHER DRIVING HER HOME.
--- NOTE | 2019-02-23 13:26 | OP ---
PATIENT NAME: DARA WADE MEDICAL RECORD: [id number] :[birth year] LOCATION:D.[facility] ADMISSION DATE: SURGEON: DARI DREW MD DATE OF OPERATION: 02/18/2019 PROCEDURE: PTCA and stent to right coronary. DESCRIPTION OF PROCEDURE: A 6-Kazakh sheath was placed in the right femoral artery. Hockey stick guide catheter provided good guide catheter support followed by 300-cm Whisper wire placed across 90% stenosis at distal right and 80% stenosis at proximal right down this portion of vessel. Stents were placed in the following fashion: A 3.0 x 18 mm Promus drug-eluting stent up to 14 atmospheres for 45 seconds; and at more proximal 80% stenosis, a 3.0 x 15 mm [place] drug-eluting stent up to 14 atmospheres. Final angiography shows excellent resolution of 90% stenosis distally and 80% stenosis proximally. No significant residual. GURPREET flow was 3 throughout the procedure. Heparin was used during the case. Sheath was closed with ExoSeal device. The patient was previously on Plavix. TRANSINT:[id number] Voice Confirmation ID: [id number] DOCUMENT ID: [id number] DARI DREW MD at 1326 CC: [id number] DICTATION DATE: 02/18/19 1337 RAIL SIGNAL WORKER: 02/18/19 1811 DEP CLI 02/18/19 [facility] [address] [place] [address]
== END 2019-02-18 17:40 | disposition home or self-care (01) ==
LOC: D.CATH 11:03
PROVIDERS: ATTEND Internal Medicine Interventional Cardiology
DX: I25.119 Atherosclerotic heart disease of native coronary artery with unspecified angina pectoris (principal); Z01.812 Encounter for preprocedural laboratory examination